=== PATIENT | male | born 1950 | race Caucasian/White ===

== ENCOUNTER 2019-08-19 09:29 | Inpatient (IN) | payer MEDICARE, OTHER ==
[2019-08-19] MEDS ORDERED: Ondansetron 4 MG/2 ML SDV IVPUSH ONE (10:28)
[2019-08-19] MEDS ORDERED: Sodium Chloride 0.9% 10 ML Syringe FLUSH PRN (10:28)
--- NOTE | 2019-08-19 10:29 | EDM.PDOC ---
<Fauzia Garcia L - Last Filed: 08/19/19 10:22> ED HPI GENERAL MEDICAL PROBLEM - General Chief Complaint: Abdominal Pain Stated Complaint: VOMITING BLACK Time Seen by Provider: 08/19/19 10:03 Source of Information: Reports: Patient History Limitations: Reports: No Limitations - History of Present Illness INITIAL COMMENTS - FREE TEXT/NARRATIVE: 68-year-old male presents with epigastric burning and black emesis starting this morning around 4 am. He notes that yesterday around 4 pm he started having abdominal bloating. The 3 episodes of emesis were as follows: 1st was a moderate amount starting at 4 am, 2nd was a small amount around 5:30 am, and 3rd was a significant amount around 7 am. He did notice some "clamato" colored areas within the emesis but states that he did have a chicken sandwich with clamato before the emesis started. He denies any recent alcohol use or changes to his diet. He states that he does not eat after 1 pm each day and has been doing this for over 15 years. He occasionally will have a small snack to take his eliquis with in the afternoon. He was started on eliquis due to a history of multiple pulmonary embolisms. The patient denies changes to his stool, changes to urination, chest pain, headaches , and shortness of breath. He has been feeling a bit more fatigued in the past day. Onset: Today Location: Reports: Abdomen Quality: Reports: Burning (epigastric region) Severity: Mild (right now 4/10 but states it had been about 9/10) Associated Symptoms: Reports: Weakness Abdominal Pain Score (Numeric/FACES): 4 - Related Data Allergies Allergy/AdvReac Type Severity Reaction Status Date / Time apixaban [From Eliquis] AdvReac Rash Verified 08/19/19 10:00 Home Meds: Home Meds Apixaban [Eliquis] 5 mg PO BID 08/19/19 [History] Diltiazem HCl [Cardizem LA] 360 mg PO DAILY 08/19/19 [History] Metoprolol Succinate 100 mg PO DAILY 08/19/19 [History] hydroCHLOROthiazide [Hydrochlorothiazide] 12.5 mg PO DAILY 08/19/19 [History] Past Medical History Cardiovascular History: Reports: High Cholesterol, Hypertension Respiratory History: Reports: PE, Other (See Below) Other Respiratory History: undiagnosed lung issue - chronic occupational asthma Genitourinary History: Reports: Prostate Disorder Dermatologic History: Reports: Psoriasis (around umbilicus) - Past Surgical History HEENT Surgical History: Reports: Cataract Surgery, Other (See Below) Other HEENT Surgeries/Procedures: eyes rebuilt Other Respiratory Surgeries/Procedures: blood clot removed from him lunch via access of groin GI Surgical History: Reports: Appendectomy, Hernia, Inguinal Musculoskeletal Surgical History: Reports: Shoulder Surgery, Other (See Below) Other Musculoskeletal Surgeries/Procedures:: finger surgery Social & Family History - Tobacco Use Smoking Status *Q: Never Smoker - Caffeine Use Caffeine Use: Reports: Coffee - Recreational Drug Use Recreational Drug Use: No ED ROS GENERAL - Review of Systems Review Of Systems: See Below Constitutional: Reports: Fatigue. Denies: Fever, Chills HEENT: Reports: No Symptoms Respiratory: Reports: No Symptoms Cardiovascular: Reports: No Symptoms GI/Abdominal: Reports: Abdominal Pain (epigastric burning), Distension, Nausea, Vomiting, Other (black emesis ). Denies: Constipation, Diarrhea, Difficulty Swallowing : Reports: No Symptoms Musculoskeletal: Reports: No Symptoms Skin: Reports: No Symptoms Neurological: Reports: No Symptoms Psychiatric: Reports: No Symptoms Hematologic/Lymphatic: Reports: Easy Bleeding (on eliquis ) ED EXAM, GI/ABD - Physical Exam Exam: See Below Exam Limited By: No Limitations General Appearance: Alert, WD/WN, No Apparent Distress Head: Atraumatic, Normocephalic Neck: Normal Inspection Respiratory/Chest: No Respiratory Distress, Lungs Clear, Normal Breath Sounds, No Accessory Muscle Use Cardiovascular: Normal Peripheral Pulses, No Murmur, Tachycardia GI/Abdominal Exam: Normal Bowel Sounds, Non-Tender, No Organomegaly, No Mass, Distended. No: Hernia Back Exam: Normal Inspection, Full Range of Motion Neurological: Alert, Oriented, Normal Cognition Psychiatric: Normal Affect, Normal Mood Skin Exam: Warm, Dry, Intact, Normal Color, Rash (periumbilical psoriasis ), Other (small hemangioma on right mid-abdomen ) Course - Vital Signs Last Recorded V/S: Last Vital Signs Temp 97.7 F 08/19/19 09:55 Pulse 110 H 08/19/19 09:55 Resp 18 08/19/19 09:55 BP 153/107 H 08/19/19 09:55 Pulse Ox 96 08/19/19 09:55 Orthostatic Blood Pressure [ 140/100 Standing] Orthostatic Blood Pressure [ 153/94 Sitting] Orthostatic Blood Pressure [ 137/98 Supine] - Orders/Labs/Meds Orders: Active Orders 24 hr Category Date Time Status Peripheral IV Care [RC] . DIRECTED Care 08/19/19 10:29 Active Sodium Chloride 0.9% [Normal Saline] 1,000 ml Med 08/19/19 10:30 Active IV ONETIME Sodium Chloride 0.9% [Saline Flush] Med 08/19/19 10:28 Active 10 ml FLUSH ASDIRECTED PRN Peripheral IV Insertion Adult [OM.PC] Stat Oth 08/19/19 10:27 Ordered Medication Orders Sodium Chloride (Normal Saline) 1,000 mls @ 999 mls/hr IV ONETIME TOMMY Last Admin: 08/19/19 11:02 Dose: 999 mls/hr Sodium Chloride (Saline Flush) 10 ml FLUSH ASDIRECTED PRN PRN Reason: Keep Vein Open Last Admin: 08/19/19 10:50 Dose: 10 ml Labs: Laboratory Tests 08/19/19 08/19/19 Range/Units 10:00 10:00 WBC 11.86 H (4.23-9.07) K/mm3 RBC 5.15 (4.63-6.08) M/mm3 Hgb 15.2 (13.7-17.5) gm/dl Hct 46.8 (40.1-51.0) % MCV 90.9 (79.0-92.2) fl MCH 29.5 (25.7-32.2) pg MCHC 32.5 (32.2-35.5) g/dl RDW Std Deviation 44.4 H (35.1-43.9) fL Plt Count 233 (163-337) K/mm3 MPV 10.0 (9.4-12.3) fl Neut % (Auto) 88.6 H (34.0-67.9) % Lymph % (Auto) 4.4 L (21.8-53.1) % [place] % (Auto) 6.6 (5.3-12.2) % Eos % (Auto) 0.1 L (0.8-7.0) Baso % (Auto) 0.1 (0.1-1.2) % Neut # (Auto) 10.52 H (1.78-5.38) K/mm3 Lymph # (Auto) 0.52 L (1.32-3.57) K/mm3 [place] # (Auto) 0.78 (0.30-0.82) K/mm3 Eos # (Auto) 0.01 L (0.04-0.54) K/mm3 Baso # (Auto) 0.01 (0.01-0.08) K/mm3 Manual Slide Review Abnormal smear Sodium 141 (136-145) mEq/L Potassium 3.3 L (3.5-5.1) mEq/L Chloride 98 (98-107) mEq/L Carbon Dioxide 32 (21-32) mEq/L Anion Gap 14.3 (5-15) BUN 22 H (7-18) mg/dL Creatinine 1.3 (0.7-1.3) mg/dL Est Cr Clr Drug Dosing 50.85 mL/min Estimated GFR (MDRD) 55 (>60) mL/min BUN/Creatinine Ratio 16.9 (14-18) Glucose 137 H (80-115) mg/dL Calcium 9.8 (8.5-10.1) mg/dL Total Bilirubin 0.4 (0.2-1.0) mg/dL AST 18 (15-37) U/L ALT 22 (16-63) U/L Alkaline Phosphatase 95 (46-116) U/L Total Protein 8.5 H (6.4-8.2) g/dl Albumin 4.0 (3.4-5.0) g/dl Globulin 4.5 gm/dL Albumin/Globulin Ratio 0.9 L (1-2) Meds: Medications Generic Name Dose Route Start Last Admin Trade Name Freq PRN Reason Stop Dose Admin Sodium Chloride 1,000 mls @ 999 mls/hr 08/19/19 10:30 08/19/19 11:02 Normal Saline IV 999 mls/hr ONETIME TOMMY Administration Sodium Chloride 10 ml 08/19/19 10:28 08/19/19 10:50 Saline Flush FLUSH 10 ml ASDIRECTED PRN Administration Keep Vein Open Discontinued Medications Generic Name Dose Route Start Last Admin Trade Name Freq PRN Reason Stop Dose Admin Famotidine 20 mg 08/19/19 10:35 08/19/19 10:52 Pepcid IVPUSH 01/30/20 10:36 20 mg ONETIME ONE Administration Ondansetron HCl 4 mg 08/19/19 10:28 08/19/19 10:50 Zofran IVPUSH 08/19/19 10:29 4 mg ONETIME ONE Administration Pantoprazole Sodium 40 mg 08/19/19 10:35 08/19/19 10:54 Protonix Iv IVPUSH 08/19/19 10:36 40 mg ONETIME ONE Administration Departure - Departure Disposition: Admitted As Inpatient 66 Clinical Impression: Upper GI hemorrhage - Discharge Information Sepsis Event Note - Evaluation Sepsis Screening Result: No Definite Risk - Focused Exam Vital Signs: Vital Signs Temp Pulse Resp BP Pulse Ox 08/19/19 09:55 97.7 F 110 H 18 153/107 H 96 Date Exam was Performed: 08/19/19 Time Exam was Performed: 10:22 - My Orders Last 24 Hours: My Active Orders 08/19/19 10:27 Peripheral IV Insertion Adult [OM.PC] Stat 08/19/19 10:28 Sodium Chloride 0.9% [Saline Flush] 10 ml FLUSH ASDIRECTED PRN 08/19/19 10:29 Peripheral IV Care [RC] . DIRECTED 08/19/19 10:30 Sodium Chloride 0.9% [Normal Saline] 1,000 ml IV ONETIME - Assessment/Plan Last 24 Hours: My Active Orders 08/19/19 10:27 Peripheral IV Insertion Adult [OM.PC] Stat 08/19/19 10:28 Sodium Chloride 0.9% [Saline Flush] 10 ml FLUSH ASDIRECTED PRN 08/19/19 10:29 Peripheral IV Care [RC] . DIRECTED 08/19/19 10:30 Sodium Chloride 0.9% [Normal Saline] 1,000 ml IV ONETIME <Tomy Guidry L - Last Filed: 08/19/19 13:31> ED ROS GENERAL - Review of Systems GI/Abdominal: Denies: Hematochezia, Melena ED EXAM, GI/ABD - Physical Exam Rectal (Males) Exam: Other (Trace brown stool, no blood, heme negative) Course - Re-Assessments/Exams Free Text/Narrative Re-Assessment/Exam: 08/19/19 13:23 Hemoglobin did come back good at around 15.4. Blood pressure is been stable but he has been tachycardic most if not all of the time here in the ED. He came in with a heart rate in the 110-112 range, slowly as tapered down to about 102- 104. Blood pressure has remained in the 130s to 140s systolic. There's been no vomiting while in the ED but she does continue to have upper abdominal pressure , fullness bloating and nausea type feeling. Did give pepcid IV, protonix 40 mg IV, did just order 2nd 40 mg dose of protonix IV. Departure - Departure Time of Disposition: 11:30 Condition: Fair Sepsis Event Note - Focused Exam Date Exam was Performed: 08/19/19 Time Exam was Performed: 13:22 ED Communication - Discussed Case With (1) Discussed Case With (1): Admitting Provider (Discussed with Dr Carver, decision to admit at about 11:30)
[2019-08-19] MEDS ORDERED: Sodium Chloride 0.9% 1,000 ML IV SCH (10:30)
[2019-08-19] MEDS ORDERED: Famotidine 20 MG/2 ML SDV IVPUSH ONE (10:35)
[2019-08-19] MEDS ORDERED: Pantoprazole 40 MG Vial IVPUSH ONE ×2 (10:35→13:25)
[2019-08-19] MEDS: Pantoprazole 80 MG in Sodium Chloride 0.9% 100 ML IV SCH ×2 (14:25→23:50)
[2019-08-19] MEDS ORDERED: Ondansetron 4 MG/2 ML SDV IV PRN (14:45)
--- NOTE | 2019-08-19 14:52 | PCM.CONS ---
H&P History of Present Illness - General Date of Service: 08/19/19 Admit Problem/Dx: Admission Diagnosis/Problem Admission Diagnosis/Problem Gastric hemorrhage Source of Information: Patient, Provider History Limitations: Reports: No Limitations - History of Present Illness Initial Comments - Free Text/Narative: The patient is a 68 y/o gentleman who presented with epigastric pain and coffee- ground emesis. He reports having burning pain and pressure in the epigastrium starting yesterday. This was preceded by 2 weeks of heartburn. He started vomiting this am, and noted black emesis and coffee-ground emesis. He reports occasional BRBPR and bright red blood on his stools in the toilet bowl. He reports problems with hemorrhoids in the past. He states the rectal bleeding is often associated with a painful or hard stool. He is in the process of scheduling an outpatient EGD and colonoscopy. He takes an anticoagulant for the past 8 months for a history of PE. Abdominal Pain Score (Numeric/FACES): 2 - Related Data Allergies/Adverse Reactions: Allergies Allergy/AdvReac Type Severity Reaction Status Date / Time No Known Allergies Allergy Verified 08/19/19 14:10 Home Medications: Home Meds Apixaban [Eliquis] 5 mg PO BID 08/19/19 [History] Diltiazem HCl [Cardizem LA] 360 mg PO DAILY 08/19/19 [History] Metoprolol Succinate 100 mg PO DAILY 08/19/19 [History] hydroCHLOROthiazide [Hydrochlorothiazide] 12.5 mg PO DAILY 08/19/19 [History] Past Medical History HEENT History: Reports: Impaired Vision Cardiovascular History: Reports: High Cholesterol, Hypertension Respiratory History: Reports: PE, Other (See Below) Other Respiratory History: undiagnosed lung issue - chronic occupational asthma Genitourinary History: Reports: Prostate Disorder Dermatologic History: Reports: Psoriasis - Past Surgical History HEENT Surgical History: Reports: Cataract Surgery, Other (See Below) Other HEENT Surgeries/Procedures: eyes rebuilt Other Respiratory Surgeries/Procedures: blood clot removed from him lunch via access of groin GI Surgical History: Reports: Appendectomy, Hernia, Inguinal Musculoskeletal Surgical History: Reports: Shoulder Surgery, Other (See Below) Other Musculoskeletal Surgeries/Procedures:: finger surgery Social & Family History - Family History Cardiac: Reports: CAD Oncologic: Reports: None - Tobacco Use Smoking Status *Q: Former Smoker Used Tobacco, but Quit: Yes Month/Year Tobacco Last Used: 1979 - Caffeine Use Caffeine Use: Reports: Coffee - Recreational Drug Use Recreational Drug Use: No H&P Review of Systems - Review of Systems: Review Of Systems: See Below General: Reports: No Symptoms HEENT: Reports: No Symptoms Pulmonary: Reports: Wheezing, Cough Cardiovascular: Reports: No Symptoms Gastrointestinal: Reports: Abdominal Pain, Hematemesis, Vomiting Genitourinary: Reports: No Symptoms Skin: Reports: Rash Neurological: Reports: Weakness Exam - Exam Exam: See Below - Vital Signs Vital Signs: Last Vital Signs Temp 36.5 C 08/19/19 09:55 Pulse 110 H 08/19/19 09:55 Resp 18 08/19/19 09:55 BP 153/107 H 08/19/19 09:55 Pulse Ox 96 08/19/19 09:55 Orthostatic Blood Pressure [ 140/100 Standing] Orthostatic Blood Pressure [ 153/94 Sitting] Orthostatic Blood Pressure [ 137/98 Supine] Weight: 86.273 kg - Exam Quality Assessment: Supplemental Oxygen General: Alert, Oriented HEENT: Conjunctiva Clear, EOMI Neck: Supple Lungs: Normal Respiratory Effort Cardiovascular: Regular Rhythm, Tachycardia GI/Abdominal Exam: Soft, Distended (mild), Tender (mild tenderness in the upper abdomen) Peripheral Pulses: 2+: Dorsalis Pedis (L), Dorsalis Pedis (R) Skin: Warm, Dry, Intact Neurological: Cranial Nerves Intact Neuro Extensive - Mental Status: Normal Mood/Affect - Patient Data Lab Results Last 24 hrs: Laboratory Results - last 24 hr 08/19/19 08/19/19 08/19/19 Range/Units 10:00 10:00 14:27 WBC 11.86 H (4.23-9.07) K/mm3 RBC 5.15 (4.63-6.08) M/mm3 Hgb 15.2 14.1 (13.7-17.5) gm/dl Hct 46.8 43.7 (40.1-51.0) % MCV 90.9 (79.0-92.2) fl MCH 29.5 (25.7-32.2) pg MCHC 32.5 (32.2-35.5) g/dl RDW Std Deviation 44.4 H (35.1-43.9) fL Plt Count 233 (163-337) K/mm3 MPV 10.0 (9.4-12.3) fl Neut % (Auto) 88.6 H (34.0-67.9) % Lymph % (Auto) 4.4 L (21.8-53.1) % [place] % (Auto) 6.6 (5.3-12.2) % Eos % (Auto) 0.1 L (0.8-7.0) Baso % (Auto) 0.1 (0.1-1.2) % Neut # (Auto) 10.52 H (1.78-5.38) K/mm3 Lymph # (Auto) 0.52 L (1.32-3.57) K/mm3 [place] # (Auto) 0.78 (0.30-0.82) K/mm3 Eos # (Auto) 0.01 L (0.04-0.54) K/mm3 Baso # (Auto) 0.01 (0.01-0.08) K/mm3 Manual Slide Review Abnormal smear Sodium 141 (136-145) mEq/L Potassium 3.3 L (3.5-5.1) mEq/L Chloride 98 (98-107) mEq/L Carbon Dioxide 32 (21-32) mEq/L Anion Gap 14.3 (5-15) BUN 22 H (7-18) mg/dL Creatinine 1.3 (0.7-1.3) mg/dL Est Cr Clr Drug Dosing 50.85 mL/min Estimated GFR (MDRD) 55 (>60) mL/min BUN/Creatinine Ratio 16.9 (14-18) Glucose 137 H (80-115) mg/dL Calcium 9.8 (8.5-10.1) mg/dL Total Bilirubin 0.4 (0.2-1.0) mg/dL AST 18 (15-37) U/L ALT 22 (16-63) U/L Alkaline Phosphatase 95 (46-116) U/L Total Protein 8.5 H (6.4-8.2) g/dl Albumin 4.0 (3.4-5.0) g/dl Globulin 4.5 gm/dL Albumin/Globulin Ratio 0.9 L (1-2) Result Diagrams: 08/19/19 14:27 08/19/19 10:00 Sepsis Event Note - Evaluation Sepsis Screening Result: No Definite Risk - Focused Exam Vital Signs: Vital Signs Temp Pulse Resp BP Pulse Ox 08/19/19 09:55 36.5 C 110 H 18 153/107 H 96 Date Exam was Performed: 08/19/19 Time Exam was Performed: 16:14 Consult PN Assessment/Plan (1) Upper GI hemorrhage SNOMED Code(s): 75127356 Code(s): K92.2 - GASTROINTESTINAL HEMORRHAGE, UNSPECIFIED Current Visit: Yes Problem List Initiated/Reviewed/Updated: Yes Plan: 68 y/o male with upper GI bleed. hemodynamically stable - IVF resuscitation and NPO - trend Hg. May start diet if stable for 8-12 hours - IV protonix gtt or pushes BID per primary - obtain H. Pylori testing - will plan for EGD as outpatient at time of colonoscopy, but will continue to evaluate need for inpatient EGD Mela Fuchs MD General surgery
--- NOTE | 2019-08-19 14:59 | PCM.HP.2 ---
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 Patient states that yesterday around 10:30 AM he had a chicken salad sandwich and shortly after that his stomach started bloating. By 2200 hrs. his entire abdomen started burning and at 0400 hrs. he had black emesis. He had another small emesis at 0500 hrs. and then another large black emesis at 0700 hrs. He has not had any more emesis since that time nor has he had any bowel movements. He does complain of some mild nausea and was given Zofran in the emergency room. Patient did not take any of his medications this morning which included metoprolol, Eliquis, diltiazem, and hydrochlorothiazide. Patient denies any lightheadedness or orthostasis. Patient stopped smoking 43 years ago and does not drink alcohol. He denies any chest pain, shortness of breath, orthopnea or PND. Patient's does state that he was diagnosed with chronic occupational asthma approximately 8 years ago. Did have his pulmonary embolism when he was discharged his O2 sats were around 94 to 95% on room air. In the emergency room his blood pressure was found to be 153/107 with a heart rate of 110. Negative orthostatic blood pressures. He was given half a liter bolus and started on 150 mL/h of normal saline. Initial hemoglobin was 15.2 and a repeat on the floor was 14.1. WBC of 11.86, platelet count 233. INR, PT , PTT was not performed. BUN was slightly elevated at 22 with a creatinine of 1.3. Potassium slightly low at 3.3. Abdominal Pain Score (Numeric/FACES): 2 - Related Data Allergies/Adverse Reactions: Allergies Allergy/AdvReac Type Severity Reaction Status Date / Time No Known Allergies Allergy Verified 08/19/19 14:10 Home Medications: Home Meds Apixaban [Eliquis] 5 mg PO BID 08/19/19 [History] Diltiazem HCl [Cardizem LA] 360 mg PO DAILY 08/19/19 [History] Metoprolol Succinate 100 mg PO DAILY 08/19/19 [History] hydroCHLOROthiazide [Hydrochlorothiazide] 12.5 mg PO DAILY 08/19/19 [History] Past Medical History HEENT History: Reports: Impaired Vision Cardiovascular History: Reports: High Cholesterol, Hypertension Respiratory History: Reports: PE, Other (See Below) Other Respiratory History: undiagnosed lung issue - chronic occupational asthma Genitourinary History: Reports: Prostate Disorder Dermatologic History: Reports: Psoriasis - Past Surgical History HEENT Surgical History: Reports: Cataract Surgery, Other (See Below) Other HEENT Surgeries/Procedures: eyes rebuilt Other Respiratory Surgeries/Procedures: blood clot removed from him lunch via access of groin GI Surgical History: Reports: Appendectomy, Hernia, Inguinal Musculoskeletal Surgical History: Reports: Shoulder Surgery, Other (See Below) Other Musculoskeletal Surgeries/Procedures:: finger surgery Social & Family History - Family History Family Medical History: Noncontributory - Tobacco Use Smoking Status *Q: Former Smoker Used Tobacco, but Quit: Yes Month/Year Tobacco Last Used: 1979 - Caffeine Use Caffeine Use: Reports: Coffee - Recreational Drug Use Recreational Drug Use: No H&P Review of Systems - Review of Systems: Review Of Systems: See Below Exam - Exam Exam: See Below - Vital Signs Vital Signs: Last Vital Signs Temp 97.7 F 08/19/19 09:55 Pulse 110 H 08/19/19 09:55 Resp 18 08/19/19 09:55 BP 153/107 H 08/19/19 09:55 Pulse Ox 94 L 08/19/19 14:45 Orthostatic Blood Pressure [ 140/100 Standing] Orthostatic Blood Pressure [ 153/94 Sitting] Orthostatic Blood Pressure [ 137/98 Supine] Weight: 190 lb 3.2 oz - Patient Data Lab Results Last 24 hrs: Laboratory Results - last 24 hr 08/19/19 08/19/19 08/19/19 Range/Units 10:00 10:00 14:27 WBC 11.86 H (4.23-9.07) K/mm3 RBC 5.15 (4.63-6.08) M/mm3 Hgb 15.2 14.1 (13.7-17.5) gm/dl Hct 46.8 43.7 (40.1-51.0) % MCV 90.9 (79.0-92.2) fl MCH 29.5 (25.7-32.2) pg MCHC 32.5 (32.2-35.5) g/dl RDW Std Deviation 44.4 H (35.1-43.9) fL Plt Count 233 (163-337) K/mm3 MPV 10.0 (9.4-12.3) fl Neut % (Auto) 88.6 H (34.0-67.9) % Lymph % (Auto) 4.4 L (21.8-53.1) % Daniels % (Auto) 6.6 (5.3-12.2) % Eos % (Auto) 0.1 L (0.8-7.0) Baso % (Auto) 0.1 (0.1-1.2) % Neut # (Auto) 10.52 H (1.78-5.38) K/mm3 Lymph # (Auto) 0.52 L (1.32-3.57) K/mm3 Daniels # (Auto) 0.78 (0.30-0.82) K/mm3 Eos # (Auto) 0.01 L (0.04-0.54) K/mm3 Baso # (Auto) 0.01 (0.01-0.08) K/mm3 Manual Slide Review Abnormal smear Sodium 141 (136-145) mEq/L Potassium 3.3 L (3.5-5.1) mEq/L Chloride 98 (98-107) mEq/L Carbon Dioxide 32 (21-32) mEq/L Anion Gap 14.3 (5-15) BUN 22 H (7-18) mg/dL Creatinine 1.3 (0.7-1.3) mg/dL Est Cr Clr Drug Dosing 50.85 mL/min Estimated GFR (MDRD) 55 (>60) mL/min BUN/Creatinine Ratio 16.9 (14-18) Glucose 137 H (80-115) mg/dL Calcium 9.8 (8.5-10.1) mg/dL Total Bilirubin 0.4 (0.2-1.0) mg/dL AST 18 (15-37) U/L ALT 22 (16-63) U/L Alkaline Phosphatase 95 (46-116) U/L Total Protein 8.5 H (6.4-8.2) g/dl Albumin 4.0 (3.4-5.0) g/dl Globulin 4.5 gm/dL Albumin/Globulin Ratio 0.9 L (1-2) Result Diagrams: 08/19/19 16:23 08/19/19 10:00 EKG INTERPRETATION EKG Date: 08/19/19 Rhythm: NSR Rate (Beats/Min): 91 [place]: LAD-Left [place] Deviation P-Wave: Present QRS: Other (IVCD) ST-T: Other (aVL T wave inversion.) QT: Prolonged (QTc 509) Comparison: NA - No Prior EKG Sepsis Event Note - Evaluation Sepsis Screening Result: No Definite Risk - Focused Exam Vital Signs: Vital Signs Temp Pulse Resp BP Pulse Ox Pulse Ox 08/19/19 14:45 94 L 08/19/19 09:55 97.7 F 110 H 18 153/107 H 96 Date Exam was Performed: 08/19/19 Time Exam was Performed: 17:20 Problem List Initiated/Reviewed/Updated: Yes Orders Last 24hrs: Active Orders 24 hr Category Date Time Status Patient Status [ADT] Routine ADT 08/19/19 13:10 Active Antiembolic Devices [RC] PER UNIT ROUTINE Care 08/19/19 14:49 Ordered Notify Provider Consults [RC] ASDIRECTED Care 08/19/19 14:49 Ordered Oxygen Therapy [RC] PRN Care 08/19/19 14:45 Ordered Peripheral IV Care [RC] Q2HR Care 08/19/19 10:29 Active Up With Assistance [RC] ASDIRECTED Care 08/19/19 14:45 Ordered VTE/DVT Education [RC] PER UNIT ROUTINE Care 08/19/19 14:45 Ordered Vital Signs [RC] ASDIRECTED Care 08/19/19 14:45 Ordered Consult to Physician [CONS] Routine Cons 08/19/19 14:45 Ordered Nothing per Oral Now Diet [DIET] Diet 08/19/19 Dinner Ordered COMPREHENSIVE METABOLIC PN,CMP [CHEM] AM Lab 08/20/19 05:11 Ordered H PYLORI STOOL ANTIGEN [MREF] Routine Lab 08/19/19 13:46 Ordered HEMOGLOBIN/HEMATOCRIT,HH [HEME] Q4H Lab 08/19/19 16:00 Ordered HEMOGLOBIN/HEMATOCRIT,HH [HEME] Q4H Lab 08/19/19 20:00 Ordered HEMOGLOBIN/HEMATOCRIT,HH [HEME] Q4H Lab 08/20/19 00:00 Ordered HEMOGLOBIN/HEMATOCRIT,HH [HEME] Q4H Lab 08/20/19 04:00 Ordered HEMOGLOBIN/HEMATOCRIT,HH [HEME] Q4H Lab 08/20/19 08:00 Ordered HEMOGLOBIN/HEMATOCRIT,HH [HEME] Q4H Lab 08/20/19 12:00 Ordered MAGNESIUM [CHEM] AM Lab 08/20/19 05:11 Ordered TYPE AND SCREEN [BBK] Routine Lab 08/19/19 14:50 Ordered Metoprolol Tartrate [Lopressor] Med 08/19/19 15:00 Ordered 5 mg IVPUSH Q6H Ondansetron [Zofran] Med 08/19/19 14:45 Ordered 4 mg IV Q4H PRN Pantoprazole [ProTONIX IV] 80 mg Med 08/19/19 14:00 Active Sodium Chloride 0.9% [Normal Saline] 100 ml IV Q10H Potassium Chloride [KCl 10 MEQ in Water 100 ML] 10 meq Med 08/19/19 15:00 Ordered Premix Bag 1 bag IV Q1H Sodium Chloride 0.9% [Normal Saline] 1,000 ml Med 08/19/19 10:30 Active IV ONETIME Sodium Chloride 0.9% [Saline Flush] Med 08/19/19 10:28 Active 10 ml FLUSH ASDIRECTED PRN Peripheral IV Insertion Adult [OM.PC] Stat Oth 08/19/19 10:27 Ordered Sequential Compression Device [OM.PC] Per Unit Routine Oth 08/19/19 14:47 Ordered Resuscitation Status Routine Resus Stat 08/19/19 14:45 Ordered Medication Orders Sodium Chloride (Normal Saline) 1,000 mls @ 999 mls/hr IV ONETIME TOMMY Last Admin: 08/19/19 11:02 Dose: 999 mls/hr Pantoprazole Sodium 80 mg/ (Sodium Chloride) 100 mls @ 10 mls/hr IV Q10H TOMMY Last Admin: 08/19/19 14:25 Dose: 10 mls/hr Potassium Chloride 10 meq/ (Premix) 100 mls @ 100 mls/hr IV Q1H [facility] Stop: 08/19/19 18:59 Metoprolol Tartrate (Lopressor) 5 mg IVPUSH Q6H TOMMY Ondansetron HCl (Zofran) 4 mg IV Q4H PRN PRN Reason: Nausea/Vomiting Sodium Chloride (Saline Flush) 10 ml FLUSH ASDIRECTED PRN PRN Reason: Keep Vein Open Last Admin: 08/19/19 10:50 Dose: 10 ml Assessment/Plan Comment:: Assessment * Upper GI bleed * 3 episodes of black emesis this morning * On Eliquis secondary to unprovoked DVT/PE in November 2018 * Initial hemoglobin 15.2 and repeat 14.1 * Given pantoprazole 80 mg IV bolus in the emergency room and Pepcid 20 mg IV * Does not take NSAIDs or other antiplatelet medication * Hypertension * Patient is on metoprolol, diltiazem, and hydrochlorothiazide. * Did not take medications this morning. * Sinus tachycardia * Likely secondary to missing 2 rate control medications this morning * Less likely due to anemia since hemoglobin is still stable. * Hypoxemia requiring 2 L O2 nasal cannula * History of DVT and PE in November 2018 * History of chronic occupational asthma diagnosed approximately 8 years ago * Lung sounds are clear. Plan * Admit to ICU * Consult surgery * Stop Eliquis * N.p.o. * Type and screen, PT PTT * Normal saline at 125 mL/h * Lopressor 5 mg every 6 hours IV * H&H every 4 hours * Protonix drip * FiO2 to keep SPO2 greater than 90% * VTE prophylaxis with SCDs * Restart home blood pressure medications when taking p.o. * CODE STATUS: Full code * Length of stay anticipated 3 days - Mortality Measure Prognosis:: Poor
[2019-08-19] MEDS: Metoprolol Tartrate 5 MG/5 ML SDV IVPUSH SCH ×2 (15:57→20:55)
[2019-08-19] MEDS: Potassium Chloride 10 MEQ in Premix Bag 1 BAG IV SCH ×4 (15:58→19:21)
[2019-08-19] MEDS: Sodium Chloride 0.9% 1,000 ML IV SCH ×2 (16:11→23:54)
[2019-08-20] MEDS: Metoprolol Tartrate 5 MG/5 ML SDV IVPUSH SCH (03:21)
--- NOTE | 2019-08-20 06:43 | PCM.CONSN ---
- General Info Date of Service: 08/20/19 Functional Status: Reports: Pain Controlled, Urinating, Other (tolerating water. Pt had BM overnight that was normal. No nausea or vomiting) - Patient Data Vitals - Most Recent: Last Vital Signs Temp 36.4 C 08/20/19 04:00 Pulse 82 08/20/19 03:21 Resp 16 08/20/19 04:00 BP 126/87 08/20/19 04:00 Pulse Ox 95 08/20/19 06:00 Orthostatic Blood Pressure [ 140/100 Standing] Orthostatic Blood Pressure [ 153/94 Sitting] Orthostatic Blood Pressure [ 137/98 Supine] Weight - Most Recent: 86.183 kg I&O - Last 24 Hours: Intake & Output 08/19/19 08/19/19 08/20/19 14:59 22:59 06:59 Intake Total 831 1553 Balance 831 1553 Lab Results Last 24 Hours: Laboratory Results - last 24 hr 08/19/19 08/19/19 08/19/19 Range/Units 10:00 10:00 14:27 WBC 11.86 H (4.23-9.07) K/mm3 RBC 5.15 (4.63-6.08) M/mm3 Hgb 15.2 14.1 (13.7-17.5) gm/dl Hct 46.8 43.7 (40.1-51.0) % MCV 90.9 (79.0-92.2) fl MCH 29.5 (25.7-32.2) pg MCHC 32.5 (32.2-35.5) g/dl RDW Std Deviation 44.4 H (35.1-43.9) fL Plt Count 233 (163-337) K/mm3 MPV 10.0 (9.4-12.3) fl Neut % (Auto) 88.6 H (34.0-67.9) % Lymph % (Auto) 4.4 L (21.8-53.1) % [place] % (Auto) 6.6 (5.3-12.2) % Eos % (Auto) 0.1 L (0.8-7.0) Baso % (Auto) 0.1 (0.1-1.2) % Neut # (Auto) 10.52 H (1.78-5.38) K/mm3 Lymph # (Auto) 0.52 L (1.32-3.57) K/mm3 [place] # (Auto) 0.78 (0.30-0.82) K/mm3 Eos # (Auto) 0.01 L (0.04-0.54) K/mm3 Baso # (Auto) 0.01 (0.01-0.08) K/mm3 Manual Slide Review Abnormal smear PT (9.7-12.0) SECONDS INR APTT (22-31) SECONDS Sodium 141 (136-145) mEq/L Potassium 3.3 L (3.5-5.1) mEq/L Chloride 98 (98-107) mEq/L Carbon Dioxide 32 (21-32) mEq/L Anion Gap 14.3 (5-15) BUN 22 H (7-18) mg/dL Creatinine 1.3 (0.7-1.3) mg/dL Est Cr Clr Drug Dosing 50.85 mL/min Estimated GFR (MDRD) 55 (>60) mL/min BUN/Creatinine Ratio 16.9 (14-18) Glucose 137 H (80-115) mg/dL Calcium 9.8 (8.5-10.1) mg/dL Magnesium (1.8-2.4) mg/dl Total Bilirubin 0.4 (0.2-1.0) mg/dL AST 18 (15-37) U/L ALT 22 (16-63) U/L Alkaline Phosphatase 95 (46-116) U/L Total Protein 8.5 H (6.4-8.2) g/dl Albumin 4.0 (3.4-5.0) g/dl Globulin 4.5 gm/dL Albumin/Globulin Ratio 0.9 L (1-2) Blood Type Gel Antibody Screen 08/19/19 08/19/19 08/19/19 Range/Units 14:27 16:23 20:11 WBC (4.23-9.07) K/mm3 RBC (4.63-6.08) M/mm3 Hgb 13.3 L 12.9 L (13.7-17.5) gm/dl Hct 41.3 40.5 (40.1-51.0) % MCV (79.0-92.2) fl MCH (25.7-32.2) pg MCHC (32.2-35.5) g/dl RDW Std Deviation (35.1-43.9) fL Plt Count (163-337) K/mm3 MPV (9.4-12.3) fl Neut % (Auto) (34.0-67.9) % Lymph % (Auto) (21.8-53.1) % [place] % (Auto) (5.3-12.2) % Eos % (Auto) (0.8-7.0) Baso % (Auto) (0.1-1.2) % Neut # (Auto) (1.78-5.38) K/mm3 Lymph # (Auto) (1.32-3.57) K/mm3 [place] # (Auto) (0.30-0.82) K/mm3 Eos # (Auto) (0.04-0.54) K/mm3 Baso # (Auto) (0.01-0.08) K/mm3 Manual Slide Review PT (9.7-12.0) SECONDS INR APTT (22-31) SECONDS Sodium (136-145) mEq/L Potassium (3.5-5.1) mEq/L Chloride (98-107) mEq/L Carbon Dioxide (21-32) mEq/L Anion Gap (5-15) BUN (7-18) mg/dL Creatinine (0.7-1.3) mg/dL Est Cr Clr Drug Dosing mL/min Estimated GFR (MDRD) (>60) mL/min BUN/Creatinine Ratio (14-18) Glucose (80-115) mg/dL Calcium (8.5-10.1) mg/dL Magnesium (1.8-2.4) mg/dl Total Bilirubin (0.2-1.0) mg/dL AST (15-37) U/L ALT (16-63) U/L Alkaline Phosphatase (46-116) U/L Total Protein (6.4-8.2) g/dl Albumin (3.4-5.0) g/dl Globulin gm/dL Albumin/Globulin Ratio (1-2) Blood Type B POSITIVE Gel Antibody Screen Negative 08/19/19 08/19/19 08/20/19 Range/Units 20:11 20:11 00:13 WBC (4.23-9.07) K/mm3 RBC (4.63-6.08) M/mm3 Hgb 12.2 L (13.7-17.5) gm/dl Hct 38.7 L (40.1-51.0) % MCV (79.0-92.2) fl MCH (25.7-32.2) pg MCHC (32.2-35.5) g/dl RDW Std Deviation (35.1-43.9) fL Plt Count (163-337) K/mm3 MPV (9.4-12.3) fl Neut % (Auto) (34.0-67.9) % Lymph % (Auto) (21.8-53.1) % [place] % (Auto) (5.3-12.2) % Eos % (Auto) (0.8-7.0) Baso % (Auto) (0.1-1.2) % Neut # (Auto) (1.78-5.38) K/mm3 Lymph # (Auto) (1.32-3.57) K/mm3 [place] # (Auto) (0.30-0.82) K/mm3 Eos # (Auto) (0.04-0.54) K/mm3 Baso # (Auto) (0.01-0.08) K/mm3 Manual Slide Review PT 10.9 (9.7-12.0) SECONDS INR 1.00 APTT 28 (22-31) SECONDS Sodium (136-145) mEq/L Potassium (3.5-5.1) mEq/L Chloride (98-107) mEq/L Carbon Dioxide (21-32) mEq/L Anion Gap (5-15) BUN (7-18) mg/dL Creatinine (0.7-1.3) mg/dL Est Cr Clr Drug Dosing mL/min Estimated GFR (MDRD) (>60) mL/min BUN/Creatinine Ratio (14-18) Glucose (80-115) mg/dL Calcium (8.5-10.1) mg/dL Magnesium (1.8-2.4) mg/dl Total Bilirubin (0.2-1.0) mg/dL AST (15-37) U/L ALT (16-63) U/L Alkaline Phosphatase (46-116) U/L Total Protein (6.4-8.2) g/dl Albumin (3.4-5.0) g/dl Globulin gm/dL Albumin/Globulin Ratio (1-2) Blood Type Gel Antibody Screen 08/20/19 08/20/19 Range/Units 04:12 04:12 WBC (4.23-9.07) K/mm3 RBC (4.63-6.08) M/mm3 Hgb 11.9 L (13.7-17.5) gm/dl Hct 38.0 L (40.1-51.0) % MCV (79.0-92.2) fl MCH (25.7-32.2) pg MCHC (32.2-35.5) g/dl RDW Std Deviation (35.1-43.9) fL Plt Count (163-337) K/mm3 MPV (9.4-12.3) fl Neut % (Auto) (34.0-67.9) % Lymph % (Auto) (21.8-53.1) % [place] % (Auto) (5.3-12.2) % Eos % (Auto) (0.8-7.0) Baso % (Auto) (0.1-1.2) % Neut # (Auto) (1.78-5.38) K/mm3 Lymph # (Auto) (1.32-3.57) K/mm3 [place] # (Auto) (0.30-0.82) K/mm3 Eos # (Auto) (0.04-0.54) K/mm3 Baso # (Auto) (0.01-0.08) K/mm3 Manual Slide Review PT (9.7-12.0) SECONDS INR APTT (22-31) SECONDS Sodium 143 (136-145) mEq/L Potassium 3.6 (3.5-5.1) mEq/L Chloride 108 H (98-107) mEq/L Carbon Dioxide 27 (21-32) mEq/L Anion Gap 11.6 (5-15) BUN 18 (7-18) mg/dL Creatinine 1.1 (0.7-1.3) mg/dL Est Cr Clr Drug Dosing 60.09 mL/min Estimated GFR (MDRD) > 60 (>60) mL/min BUN/Creatinine Ratio 16.4 (14-18) Glucose 91 (80-115) mg/dL Calcium 7.8 L D (8.5-10.1) mg/dL Magnesium 1.9 (1.8-2.4) mg/dl Total Bilirubin 0.4 (0.2-1.0) mg/dL AST 14 L (15-37) U/L ALT 12 L (16-63) U/L Alkaline Phosphatase 65 (46-116) U/L Total Protein 6.1 L (6.4-8.2) g/dl Albumin 2.8 L (3.4-5.0) g/dl Globulin 3.3 gm/dL Albumin/Globulin Ratio 0.9 L (1-2) Blood Type Gel Antibody Screen Med Orders - Current: Current Medications Sodium Chloride (Normal Saline) 1,000 mls @ 999 mls/hr IV ONETIME [facility] Last Admin: 08/19/19 11:02 Dose: 999 mls/hr Pantoprazole Sodium 80 mg/ (Sodium Chloride) 100 mls @ 10 mls/hr IV Q10H [facility] Last Admin: 08/19/19 23:50 Dose: 10 mls/hr Sodium Chloride (Normal Saline) 1,000 mls @ 125 mls/hr IV ASDIRECTED [facility] Last Admin: 08/19/19 23:54 Dose: 125 mls/hr Metoprolol Tartrate (Lopressor) 5 mg IVPUSH Q6H [facility] Last Admin: 08/20/19 03:21 Dose: 5 mg Ondansetron HCl (Zofran) 4 mg IV Q4H PRN PRN Reason: Nausea/Vomiting Sodium Chloride (Saline Flush) 10 ml FLUSH ASDIRECTED PRN PRN Reason: Keep Vein Open Last Admin: 08/19/19 10:50 Dose: 10 ml Discontinued Medications Famotidine (Pepcid) 20 mg IVPUSH ONETIME ONE Stop: 08/19/19 10:36 Last Admin: 08/19/19 10:52 Dose: 20 mg Potassium Chloride 10 meq/ (Premix) 100 mls @ 100 mls/hr IV Q1H [facility] Stop: 08/19/19 18:59 Last Admin: 08/19/19 19:21 Dose: 100 mls/hr Ondansetron HCl (Zofran) 4 mg IVPUSH ONETIME ONE Stop: 08/19/19 10:29 Last Admin: 08/19/19 10:50 Dose: 4 mg Pantoprazole Sodium (Protonix Iv) 40 mg IVPUSH ONETIME ONE Stop: 08/19/19 10:36 Last Admin: 08/19/19 10:54 Dose: 40 mg Pantoprazole Sodium (Protonix Iv) 40 mg IVPUSH ONETIME ONE Stop: 08/19/19 13:26 Last Admin: 08/19/19 13:59 Dose: 40 mg - Exam Quality Assessment: Supplemental Oxygen General: Alert, Oriented HEENT: EOMI Lungs: Normal Respiratory Effort GI/Abdominal Exam: Soft, Non-Tender, No Distention Sepsis Event Note - Evaluation Sepsis Screening Result: No Definite Risk - Focused Exam Vital Signs: Vital Signs Temp Pulse Resp BP BP Pulse Ox Pulse Ox 08/20/19 06:00 95 08/20/19 05:00 96 08/20/19 04:01 94 L 08/20/19 04:00 36.4 C 16 126/87 94 L 08/20/19 03:21 82 115/77 08/20/19 02:00 95 08/20/19 01:00 94 L 08/20/19 00:01 96 08/20/19 00:00 36.4 C 16 122/76 96 08/19/19 23:00 96 08/19/19 22:00 95 08/19/19 21:16 95 08/19/19 20:55 94 143/100 H 08/19/19 20:31 95 08/19/19 20:30 95 08/19/19 20:00 36.9 C 16 139/85 93 L Date Exam was Performed: 08/20/19 Time Exam was Performed: 06:38 Consult PN Assessment/Plan (1) Upper GI hemorrhage SNOMED Code(s): 42570639 Code(s): K92.2 - GASTROINTESTINAL HEMORRHAGE, UNSPECIFIED Current Visit: Yes Problem List Initiated/Reviewed/Updated: Yes Plan: 68 y/o male with upper GI bleed. hemodynamically stable. - recommend decreasing IVF rate. - Recommend trend Hg q6h. Decrease is likely dilutional. May start diet if stable for 8-12 hours - IV protonix BID per primary - obtain H. Pylori testing - will plan for EGD as outpatient at time of colonoscopy, but will continue to evaluate need for inpatient EGD Mela Fuchs MD General surgery
[2019-08-20] MEDS: Diltiazem 180 MG Cap.CD PO SCH (08:18)
[2019-08-20] MEDS: Metoprolol Succinate 50 MG Tab.ER PO SCH (08:19)
[2019-08-20] MEDS: Hydrochlorothiazide 12.5 MG Cap PO SCH (08:24)
[2019-08-20] MEDS ORDERED: Carboxymethylcellulose Sodium 1% Ophth Gel 15 ML Bottle EYEBOTH PRN (08:37)
[2019-08-20] MEDS ORDERED: Sodium Chloride 0.9% 1,000 ML IV SCH (08:45)
[2019-08-20] MEDS: Pantoprazole 80 MG in Sodium Chloride 0.9% 100 ML IV SCH ×2 (09:54→20:39)
--- NOTE | 2019-08-20 17:37 | PCM.PN ---
- General Info Date of Service: 08/20/19 Admission Dx/Problem (Free Text): Admission Diagnosis/Problem Admission Diagnosis/Problem Gastric hemorrhage Functional Status: Reports: Pain Controlled - Review of Systems General: Reports: No Symptoms HEENT: Reports: No Symptoms Pulmonary: Reports: No Symptoms Cardiovascular: Reports: No Symptoms Gastrointestinal: Reports: No Symptoms Musculoskeletal: Reports: No Symptoms Skin: Reports: No Symptoms - Patient Data Vitals - Most Recent: Last Vital Signs Temp 98 F 08/20/19 11:26 Pulse 90 08/20/19 08:19 Resp 16 08/20/19 11:26 BP 141/89 H 08/20/19 11:26 Pulse Ox 92 L 08/20/19 11:26 Orthostatic Blood Pressure [ 140/100 Standing] Orthostatic Blood Pressure [ 153/94 Sitting] Orthostatic Blood Pressure [ 137/98 Supine] Weight - Most Recent: 190 lb I&O - Last 24 Hours: Intake & Output 08/20/19 08/20/19 08/20/19 06:59 14:59 22:59 Intake Total 1553 440 Balance 1553 440 Lab Results Last 24 Hours: Laboratory Results - last 24 hr 08/19/19 08/19/19 08/19/19 Range/Units 20:11 20:11 20:11 Hgb 12.9 L (13.7-17.5) gm/dl Hct 40.5 (40.1-51.0) % PT 10.9 (9.7-12.0) SECONDS INR 1.00 APTT 28 (22-31) SECONDS Sodium (136-145) mEq/L Potassium (3.5-5.1) mEq/L Chloride (98-107) mEq/L Carbon Dioxide (21-32) mEq/L Anion Gap (5-15) BUN (7-18) mg/dL Creatinine (0.7-1.3) mg/dL Est Cr Clr Drug Dosing mL/min Estimated GFR (MDRD) (>60) mL/min BUN/Creatinine Ratio (14-18) Glucose (80-115) mg/dL Calcium (8.5-10.1) mg/dL Magnesium (1.8-2.4) mg/dl Total Bilirubin (0.2-1.0) mg/dL AST (15-37) U/L ALT (16-63) U/L Alkaline Phosphatase (46-116) U/L Total Protein (6.4-8.2) g/dl Albumin (3.4-5.0) g/dl Globulin gm/dL Albumin/Globulin Ratio (1-2) 08/20/19 08/20/19 08/20/19 Range/Units 00:13 04:12 04:12 Hgb 12.2 L 11.9 L (13.7-17.5) gm/dl Hct 38.7 L 38.0 L (40.1-51.0) % PT (9.7-12.0) SECONDS INR APTT (22-31) SECONDS Sodium 143 (136-145) mEq/L Potassium 3.6 (3.5-5.1) mEq/L Chloride 108 H (98-107) mEq/L Carbon Dioxide 27 (21-32) mEq/L Anion Gap 11.6 (5-15) BUN 18 (7-18) mg/dL Creatinine 1.1 (0.7-1.3) mg/dL Est Cr Clr Drug Dosing 60.09 mL/min Estimated GFR (MDRD) > 60 (>60) mL/min BUN/Creatinine Ratio 16.4 (14-18) Glucose 91 (80-115) mg/dL Calcium 7.8 L D (8.5-10.1) mg/dL Magnesium 1.9 (1.8-2.4) mg/dl Total Bilirubin 0.4 (0.2-1.0) mg/dL AST 14 L (15-37) U/L ALT 12 L (16-63) U/L Alkaline Phosphatase 65 (46-116) U/L Total Protein 6.1 L (6.4-8.2) g/dl Albumin 2.8 L (3.4-5.0) g/dl Globulin 3.3 gm/dL Albumin/Globulin Ratio 0.9 L (1-2) 08/20/19 08/20/19 Range/Units 08:37 14:13 Hgb 13.2 L 12.5 L (13.7-17.5) gm/dl Hct 42.2 39.6 L (40.1-51.0) % PT (9.7-12.0) SECONDS INR APTT (22-31) SECONDS Sodium (136-145) mEq/L Potassium (3.5-5.1) mEq/L Chloride (98-107) mEq/L Carbon Dioxide (21-32) mEq/L Anion Gap (5-15) BUN (7-18) mg/dL Creatinine (0.7-1.3) mg/dL Est Cr Clr Drug Dosing mL/min Estimated GFR (MDRD) (>60) mL/min BUN/Creatinine Ratio (14-18) Glucose (80-115) mg/dL Calcium (8.5-10.1) mg/dL Magnesium (1.8-2.4) mg/dl Total Bilirubin (0.2-1.0) mg/dL AST (15-37) U/L ALT (16-63) U/L Alkaline Phosphatase (46-116) U/L Total Protein (6.4-8.2) g/dl Albumin (3.4-5.0) g/dl Globulin gm/dL Albumin/Globulin Ratio (1-2) Med Orders - Current: Current Medications Artificial Tears (Refresh Liquigel 1%) 0 ml EYEBOTH TID PRN PRN Reason: Dry Eyes Last Admin: 08/20/19 09:28 Dose: 1 drop Diltiazem HCl (Cardizem Cd) 360 mg PO DAILY [facility] Last Admin: 08/20/19 08:18 Dose: 360 mg Hydrochlorothiazide (Hydrochlorothiazide) 12.5 mg PO DAILY [facility] Last Admin: 08/20/19 08:24 Dose: 12.5 mg Pantoprazole Sodium 80 mg/ (Sodium Chloride) 100 mls @ 10 mls/hr IV Q10H [facility] Last Admin: 08/20/19 09:54 Dose: 10 mls/hr Metoprolol Succinate (Toprol Xl) 100 mg PO DAILY [facility] Last Admin: 08/20/19 08:19 Dose: 100 mg Ondansetron HCl (Zofran) 4 mg IV Q4H PRN PRN Reason: Nausea/Vomiting Sodium Chloride (Saline Flush) 10 ml FLUSH ASDIRECTED PRN PRN Reason: Keep Vein Open Last Admin: 08/19/19 10:50 Dose: 10 ml Discontinued Medications Famotidine (Pepcid) 20 mg IVPUSH ONETIME ONE Stop: 08/19/19 10:36 Last Admin: 08/19/19 10:52 Dose: 20 mg Sodium Chloride (Normal Saline) 1,000 mls @ 999 mls/hr IV ONETIME [facility] Last Admin: 08/19/19 11:02 Dose: 999 mls/hr Potassium Chloride 10 meq/ (Premix) 100 mls @ 100 mls/hr IV Q1H [facility] Stop: 08/19/19 18:59 Last Admin: 08/19/19 19:21 Dose: 100 mls/hr Sodium Chloride (Normal Saline) 1,000 mls @ 125 mls/hr IV ASDIRECTED [facility] Last Admin: 08/19/19 23:54 Dose: 125 mls/hr Sodium Chloride (Normal Saline) 1,000 mls @ 75 mls/hr IV ASDIRECTED [facility] Last Admin: 08/20/19 08:29 Dose: 75 mls/hr Metoprolol Tartrate (Lopressor) 5 mg IVPUSH Q6H [facility] Last Admin: 08/20/19 03:21 Dose: 5 mg Ondansetron HCl (Zofran) 4 mg IVPUSH ONETIME ONE Stop: 08/19/19 10:29 Last Admin: 08/19/19 10:50 Dose: 4 mg Pantoprazole Sodium (Protonix Iv) 40 mg IVPUSH ONETIME ONE Stop: 08/19/19 10:36 Last Admin: 08/19/19 10:54 Dose: 40 mg Pantoprazole Sodium (Protonix Iv) 40 mg IVPUSH ONETIME ONE Stop: 08/19/19 13:26 Last Admin: 08/19/19 13:59 Dose: 40 mg - Exam General: Alert, Oriented HEENT: Pupils Equal, Mucous Membr. Moist/[place] Neck: Supple Lungs: Clear to Auscultation, Normal Respiratory Effort Cardiovascular: Regular Rate, Regular Rhythm GI/Abdominal Exam: Normal Bowel Sounds, Soft, Non-Tender, No Organomegaly, No Distention, No Abnormal Bruit, No Mass Extremities: Normal Inspection, Non-Tender, No Pedal Edema Skin: Warm, Dry, Intact Psy/Mental Status: Alert, Normal Affect, Normal Mood Sepsis Event Note - Evaluation Sepsis Screening Result: No Definite Risk - Focused Exam Vital Signs: Vital Signs Temp Pulse Resp BP BP Pulse Ox Pulse Ox 08/20/19 11:26 98 F 16 141/89 H 92 L 08/20/19 08:19 90 141/95 H 08/20/19 08:00 97.6 F 16 141/95 H 94 L 08/20/19 06:48 96 08/20/19 06:39 97 08/20/19 06:00 95 Date Exam was Performed: 08/20/19 Time Exam was Performed: 17:38 - Problem List Review Problem List Initiated/Reviewed/Updated: Yes - My Orders Last 24 Hours: My Active Orders 08/19/19 16:41 EKG Documentation Completion [RC] ASDIRECTED EKG 12 Lead [EK] Stat 08/20/19 08:37 Carboxymethylcellulose Sodium [Refresh Liquigel 1%] 0 ml EYEBOTH TID PRN 08/20/19 09:00 Diltiazem [Cardizem CD] 360 mg PO DAILY Metoprolol Succinate [Toprol XL] 100 mg PO DAILY hydroCHLOROthiazide 12.5 mg PO DAILY 08/20/19 14:28 Patient Status [ADT] Routine 08/20/19 20:00 HEMOGLOBIN/HEMATOCRIT,HH [HEME] Timed 08/20/19 Dinner Regular Diet [DIET] - Plan Plan:: Assessment * Upper GI bleed * 3 episodes of black emesis this morning * 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 * Did not take medications this morning. * Sinus tachycardia * Likely secondary to missing 2 rate control medications this morning * Less likely due to anemia since hemoglobin is still stable. * Hypoxemia requiring 2 L O2 nasal cannula * History of DVT and PE in November 2018 * History of chronic occupational asthma diagnosed approximately 8 years ago * Lung sounds are clear. Plan * Admit to ICU * Surgery following * Stop Eliquis * Advance diet. * Normal saline at 125 mL/h * Restart oral home meds. * H&H every 6 hours * Continue Protonix drip * FiO2 to keep SPO2 greater than 90% * VTE prophylaxis with SCDs * CODE STATUS: Full code * Length of stay anticipated 3 days
[2019-08-21] MEDS: Pantoprazole 80 MG in Sodium Chloride 0.9% 100 ML IV SCH (06:54)
[2019-08-21] MEDS: Metoprolol Succinate 50 MG Tab.ER PO SCH (09:11)
[2019-08-21] MEDS: Diltiazem 180 MG Cap.CD PO SCH (09:13)
[2019-08-21] MEDS: Hydrochlorothiazide 12.5 MG Cap PO SCH (09:14)
--- NOTE | 2019-08-21 10:29 | PCM.DCSUM1 ---
Discharge Summary - Hospital Course HPI Initial Comments: 68-year-old male taking Eliquis for history of unprovoked DVT with PE in November 2018 presented to the emergency room after 3 episodes of black emesis. Patient states that yesterday around 10:30 AM he had a chicken salad sandwich and shortly after that his stomach started bloating. By 2200 hrs. his entire abdomen started burning and at 0400 hrs. he had black emesis. He had another small emesis at 0500 hrs. and then another large black emesis at 0700 hrs. He has not had any more emesis since that time nor has he had any bowel movements. He does complain of some mild nausea and was given Zofran in the emergency room. Patient did not take any of his medications this morning which included metoprolol, Eliquis, diltiazem, and hydrochlorothiazide. Patient denies any lightheadedness or orthostasis. Patient stopped smoking 43 years ago and does not drink alcohol. He denies any chest pain, shortness of breath, orthopnea or PND. Patient's does state that he was diagnosed with chronic occupational asthma approximately 8 years ago. Did have his pulmonary embolism when he was discharged his O2 sats were around 94 to 95% on room air. In the emergency room his blood pressure was found to be 153/107 with a heart rate of 110. Negative orthostatic blood pressures. He was given half a liter bolus and started on 150 mL/h of normal saline. Initial hemoglobin was 15.2 and a repeat on the floor was 14.1. WBC of 11.86, platelet count 233. INR, PT , PTT was not performed. BUN was slightly elevated at 22 with a creatinine of 1.3. Potassium slightly low at 3.3. Diagnosis: Stroke: No - Discharge Data Discharge Date: 08/21/19 Discharge Disposition: Home, Self-Care 01 Condition: Good - Referral to Home Health Primary Care Physician: Jarad Perez Jr, MD - Patient Summary/Data Consults: Consultations 08/19/19 14:45 Consult to Physician [CONS] Routine Hospital Course: Patient was admitted into the ICU on a Protonix drip for upper GI bleeding. Serial hemoglobin was monitored and his hemoglobin dropped 2-3 points but stabilized. Diet was advanced without difficulty. Surgery was consulted. Patient was discharged on Protonix 40 mg twice daily with follow-up anticipated with surgery for outpatient endoscopy and his primary care provider. Patient was told to stop Eliquis and anticoagulation will need to be discussed with primary care provider. - Patient Instructions Diet: Heart Healthy Diet Driving: May Drive Today Showering/Bathing: May Shower Other/Special Instructions: Follow up with PCP early next week for appointment and blood count. Start pantoprazole 40 mg twice a day. Follow up with Dr. Rees in 4-5 weeks to discuss endoscopy. If you have black emesis, lightheadedness, dizziness return to hospital. - Discharge Plan *PRESCRIPTION DRUG MONITORING PROGRAM REVIEWED*: No *COPY OF PRESCRIPTION DRUG MONITORING REPORT IN PATIENT AMANDA: No Prescriptions/Med Rec: Pantoprazole Sodium [Protonix] 40 mg PO BID #60 tablet. Home Medications: Home Meds Diltiazem HCl [Cardizem LA] 360 mg PO DAILY 08/19/19 [History] Metoprolol Succinate 100 mg PO DAILY 08/19/19 [History] hydroCHLOROthiazide [Hydrochlorothiazide] 12.5 mg PO DAILY 08/19/19 [History] Carboxymethylcellulose Sodium [Refresh Tears] 1 drop EYEBOTH TID PRN 08/20/19 [ History] Pantoprazole Sodium [Protonix] 40 mg PO BID #60 tablet. 08/21/19 [Rx] Patient Handouts: Gastrointestinal Bleeding Forms: ED Department Discharge Referrals: Mela Fuchs MD [Physician] - (per patient and this appt. is already in the works they are waiting call back from nurse at [facility] with appt. date and time for scope. Encouraged patient that if he does not hear from them in a couple of days to call them back.) Jarad Perez Jr, MD [Primary Care Provider] - (Please schedule a hospital follow up appointment with your primary care provider within 7-10 days) - Discharge Summary/Plan Comment DC Time >30 min.: Yes Discharge Summary/Plan Comment: Follow-up with primary care provider next week for repeat hemoglobin. Do not restart your Eliquis. Follow-up with Dr. Rees in surgery in 4 to 5 weeks. - General Info Date of Service: 08/21/19 Admission Dx/Problem (Free Text: Admission Diagnosis/Problem Admission Diagnosis/Problem Gastric hemorrhage Functional Status: Reports: Pain Controlled - Review of Systems General: Reports: No Symptoms HEENT: Reports: No Symptoms Pulmonary: Reports: No Symptoms Cardiovascular: Reports: No Symptoms Gastrointestinal: Reports: No Symptoms Musculoskeletal: Reports: No Symptoms Skin: Reports: No Symptoms Psychiatric: Reports: No Symptoms - Patient Data Vitals - Most Recent: Last Vital Signs Temp 97.7 F 08/21/19 08:00 Pulse 70 08/21/19 09:11 Resp 16 08/21/19 08:00 BP 141/90 H 08/21/19 09:11 Pulse Ox 97 08/21/19 08:00 Orthostatic Blood Pressure [ 140/100 Standing] Orthostatic Blood Pressure [ 153/94 Sitting] Orthostatic Blood Pressure [ 137/98 Supine] Weight - Most Recent: 188 lb 14.4 oz I&O - Last 24 hours: Intake & Output 08/20/19 08/21/19 08/21/19 22:59 06:59 14:59 Intake Total 2009 100 Balance 2009 100 Lab Results - Last 24 hrs: Laboratory Results - last 24 hr 08/20/19 08/20/19 08/21/19 Range/Units 14:13 19:59 02:05 Hgb 12.5 L 12.6 L 12.0 L (13.7-17.5) gm/dl Hct 39.6 L 39.2 L 38.2 L (40.1-51.0) % 08/21/19 Range/Units 08:00 Hgb 13.2 L (13.7-17.5) gm/dl Hct 41.8 (40.1-51.0) % Med Orders - Current: Current Medications Artificial Tears (Refresh Liquigel 1%) 0 ml EYEBOTH TID PRN PRN Reason: Dry Eyes Last Admin: 08/20/19 09:28 Dose: 1 drop Diltiazem HCl (Cardizem Cd) 360 mg PO DAILY [facility] Last Admin: 08/21/19 09:13 Dose: 360 mg Hydrochlorothiazide (Hydrochlorothiazide) 12.5 mg PO DAILY [facility] Last Admin: 08/21/19 09:14 Dose: 12.5 mg Pantoprazole Sodium 80 mg/ (Sodium Chloride) 100 mls @ 10 mls/hr IV Q10H [facility] Last Admin: 08/21/19 06:54 Dose: 10 mls/hr Metoprolol Succinate (Toprol Xl) 100 mg PO DAILY [facility] Last Admin: 08/21/19 09:11 Dose: 100 mg Ondansetron HCl (Zofran) 4 mg IV Q4H PRN PRN Reason: Nausea/Vomiting Sodium Chloride (Saline Flush) 10 ml FLUSH ASDIRECTED PRN PRN Reason: Keep Vein Open Last Admin: 08/19/19 10:50 Dose: 10 ml Discontinued Medications Famotidine (Pepcid) 20 mg IVPUSH ONETIME ONE Stop: 08/19/19 10:36 Last Admin: 08/19/19 10:52 Dose: 20 mg Sodium Chloride (Normal Saline) 1,000 mls @ 999 mls/hr IV ONETIME [facility] Last Admin: 08/19/19 11:02 Dose: 999 mls/hr Potassium Chloride 10 meq/ (Premix) 100 mls @ 100 mls/hr IV Q1H [facility] Stop: 08/19/19 18:59 Last Admin: 08/19/19 19:21 Dose: 100 mls/hr Sodium Chloride (Normal Saline) 1,000 mls @ 125 mls/hr IV ASDIRECTED [facility] Last Admin: 08/19/19 23:54 Dose: 125 mls/hr Sodium Chloride (Normal Saline) 1,000 mls @ 75 mls/hr IV ASDIRECTED [facility] Last Admin: 08/20/19 08:29 Dose: 75 mls/hr Metoprolol Tartrate (Lopressor) 5 mg IVPUSH Q6H [facility] Last Admin: 08/20/19 03:21 Dose: 5 mg Ondansetron HCl (Zofran) 4 mg IVPUSH ONETIME ONE Stop: 08/19/19 10:29 Last Admin: 08/19/19 10:50 Dose: 4 mg Pantoprazole Sodium (Protonix Iv) 40 mg IVPUSH ONETIME ONE Stop: 08/19/19 10:36 Last Admin: 08/19/19 10:54 Dose: 40 mg Pantoprazole Sodium (Protonix Iv) 40 mg IVPUSH ONETIME ONE Stop: 08/19/19 13:26 Last Admin: 08/19/19 13:59 Dose: 40 mg - Exam General: Reports: Alert, Oriented HEENT: Reports: Pupils Equal, Mucous Membr. Moist/[place] Neck: Reports: Supple Lungs: Reports: Clear to Auscultation, Normal Respiratory Effort Cardiovascular: Reports: Regular Rate, Regular Rhythm GI/Abdominal Exam: Normal Bowel Sounds, Soft, Non-Tender, No Organomegaly, No Distention Back Exam: Reports: Normal Inspection Extremities: Normal Inspection, Normal Range of Motion, Non-Tender, No Pedal Edema, Normal Capillary Refill Skin: Reports: Warm, Dry, Intact Neurological: Reports: No New Focal Deficit Psy/Mental Status: Reports: Alert, Normal Affect, Normal Mood
== END 2019-08-21 11:40 | disposition home or self-care (01) | DRG 379 ==
LOC: JD.ED 09:29 → JD.ICU 13:10
PROVIDERS: ADMIT Family Medicine; ATTEND Family Medicine
DX: K92.2 Gastrointestinal hemorrhage, unspecified (principal); I10 Essential (primary) hypertension; R00.0 Tachycardia, unspecified; Z86.711 Personal history of pulmonary embolism; J45.998 Other asthma; N42.9 Disorder of prostate, unspecified; R09.02 Hypoxemia; Z79.01 Long term (current) use of anticoagulants; E78.00 Pure hypercholesterolemia, unspecified; Z98.49 Cataract extraction status, unspecified eye; Z90.49 Acquired absence of other specified parts of digestive tract; Z79.899 Other long term (current) drug therapy; Z88.8 Allergy status to other drugs, medicaments and biological substances; Z86.718 Personal history of other venous thrombosis and embolism; Z87.891 Personal history of nicotine dependence
CPT/HCPCS: 36415; 80053; 85025; 96361; 96374; 96375; 99285; C9113; J2405; J3490; J7030; 83735; 85014; 85018; 85610; 85730; 86850; 86900; 86901; 93005; 96376; 99222; 99231; 99239; 99284; A9270-GY; J3480; J7050

== ENCOUNTER 2024-03-20 12:18 | Inpatient (IN) | payer MEDICARE, OTHER ==
[2024-03-20] MEDS ORDERED: Sodium Chloride 0.9% 10 ML Syringe FLUSH PRN (13:09)
[2024-03-20 13:57] LABS: BASOPHILS PERCENT AUTO 0.6 % (0.0-1.0); EOSINOPHILS ABSOLUTE AUTO 0.1 K/mm3 (0.0-0.4); EOSINOPHILS PERCENT AUTO 1.9 % (0.0-6.0); HEMOGLOBIN 14.1 gm/dl (14.0-18.0); IMMATURE GRAN ABSOLUTE AUTO 0.02 K/mm3 (0.00-0.05); IMMATURE GRAN PERCENT AUTO 0.3 % (0.0-0.4); LYMPHOCYTES ABSOLUTE AUTO 0.9 K/mm3 (1.0-4.8); LYMPHOCYTES PERCENT AUTO 13.4 % (24.0-44.0); MEAN CORPUSCULAR HEMOGLOBIN 29.3 pg (28.0-32.0); MEAN CORPUSCULAR HGB CONC 33.6 g/dl (32.0-36.0); MEAN CORPUSCULAR VOLUME 87.3 fl (83.0-99.0); MEAN PLATELET VOLUME 9.2 fl (9.4-12.4); MONOCYTES ABSOLUTE AUTO 0.6 K/mm3 (0.0-0.8); MONOCYTES PERCENT AUTO 8.5 % (0.0-8.0); NEUTROPHILS ABSOLUTE AUTO 5.2 K/mm3 (1.8-7.7); NEUTROPHILS PERCENT AUTO 75.3 % (41.0-71.0); PLATELET COUNT,PLT 170 K/mm3 (150-400); RED BLOOD CELL COUNT 4.81 M/mm3 (4.52-5.90); WHITE BLOOD CELL COUNT,WBC 6.94 K/mm3 (3.9-11.3)
[2024-03-20 14:25] LABS: ALBUMIN 3.8 g/dl (3.4-5.0); ANION GAP 12.6 (5-15); BILIRUBIN TOTAL 0.5 mg/dL (0.2-1.0); BUN/CREATININE RATIO 12.9 (14-18); C-REACTIVE PROTEIN 0.71 mg/dL (<0.30); CREATININE 1.4 mg/dL (0.7-1.3); EST CRCL DRUG DOSING (CG) 43.94 mL/min; MAGNESIUM 1.6 mg/dL (1.8-2.4); POTASSIUM,K 3.6 mEq/L (3.5-5.1); PROTEIN TOTAL,TP 7.6 g/dl (6.4-8.2); TSH 2.58 uIU/mL (0.358-3.74)
[2024-03-20 15:19] LABS: APPEARANCE,URINE SLT CLOUDY (Clear); BILIRUBIN,URINE NEGATIVE (Negative); COLOR,URINE LIGHT YELLOW (Yellow); GLUCOSE,URINE NEGATIVE (Negative); KETONES,URINE NEGATIVE (Negative); LEUKOCYTE ESTERASE,URINE 1+ (Negative); NITRITE,URINE NEGATIVE (Negative); OCCULT BLOOD,URINE NEGATIVE (Negative); PH,URINE 6.5 (5.0-8.0); PROTEIN,URINE NEGATIVE (Negative); UROBILINOGEN,URINE 0.2 (0.2-1.0)
[2024-03-20] MEDS: diphenhydrAMINE 50 MG/ML SDV IVPUSH ONE (15:32)
[2024-03-20] MEDS: methylPREDNISolone Sodium Succinate 125 MG/2 ML SDV IVPUSH ONE (15:34)
[2024-03-20] MEDS: Sodium Chloride 0.9% 1,000 ML IV SCH (15:38)
[2024-03-20 16:01] LABS: RBC,URINE 0-5 /hpf (0-5); SQUAMOUS EPITHELIAL CELLS,UR 0-5 /hpf (0-5)
[2024-03-20 16:02] LABS: BACTERIA,URINE RARE /hpf (FEW); HYALINE CASTS,URINE 0-5 /lpf (0-5); MUCUS,URINE FEW /hpf (FEW)
[2024-03-20 16:03] LABS: CORONAVIRUS COVID-19 NAA NEGATIVE (NEGATIVE); INFLUENZA A NAA NEGATIVE (NEGATIVE); RESPIRATORY SYNCYTIAL VIR NAA NEGATIVE (NEGATIVE)
[2024-03-20] MEDS: Iopamidol 755 Mg/ML 100 ML Bottle IVPUSH ONE (16:09)
[2024-03-20] MEDS: Sodium Chloride 0.9% 100 ML IV SCH (16:09)
[2024-03-20] MEDS: Heparin Sodium 5,000 Units/ML Vial IVPUSH ONE (17:37)
[2024-03-20] MEDS: Heparin Sodium/D5W 25,000 UNITS/500 ML BAG IV SCH (17:42)
[2024-03-20] MEDS ORDERED: Sennosides/Docusate Sodium 50-8.6 MG Tab PO PRN (19:19)
[2024-03-20] MEDS ORDERED: Naloxone 0.4 MG/ML SDV IVPUSH PRN (19:19)
[2024-03-20] MEDS ORDERED: Morphine 2 MG/ML SYRINGE IVPUSH PRN (19:19)
[2024-03-20] MEDS ORDERED: Ondansetron 4 MG/2 ML SDV IV PRN (19:19)
[2024-03-20] MEDS ORDERED: oxyCODONE 5 MG Tab PO PRN (19:19)
[2024-03-20] MEDS ORDERED: Melatonin 3 MG Tab PO PRN (19:19)
[2024-03-20] MEDS: Magnesium Sulfate/Water 4 GM in Premix Bag 1 BAG IV ONE (19:31)
[2024-03-20] MEDS ORDERED: hydrALAZINE 20 MG/ML SDV IVPUSH PRN (19:32)
[2024-03-20] MEDS ORDERED: Labetalol 100 MG/20 ML MDV IVPUSH PRN (19:35)
[2024-03-20] MEDS: Famotidine 20 MG/2 ML SDV IVPUSH SCH (23:28)
[2024-03-21 06:59] LABS: BASOPHILS PERCENT AUTO 0.2 % (0.0-1.0); HEMATOCRIT 45.2 % (42.0-52.0); HEMOGLOBIN 15.1 gm/dl (14.0-18.0); IMMATURE GRAN ABSOLUTE AUTO 0.02 K/mm3 (0.00-0.05); IMMATURE GRAN PERCENT AUTO 0.5 % (0.0-0.4); LYMPHOCYTES ABSOLUTE AUTO 0.5 K/mm3 (1.0-4.8); LYMPHOCYTES PERCENT AUTO 10.3 % (24.0-44.0); MEAN CORPUSCULAR HEMOGLOBIN 29.2 pg (28.0-32.0); MEAN CORPUSCULAR HGB CONC 33.4 g/dl (32.0-36.0); MEAN CORPUSCULAR VOLUME 87.4 fl (83.0-99.0); MEAN PLATELET VOLUME 9.1 fl (9.4-12.4); MONOCYTES ABSOLUTE AUTO 0.1 K/mm3 (0.0-0.8); MONOCYTES PERCENT AUTO 1.4 % (0.0-8.0); NEUTROPHILS ABSOLUTE AUTO 3.8 K/mm3 (1.8-7.7); NEUTROPHILS PERCENT AUTO 87.6 % (41.0-71.0); PLATELET COUNT,PLT 169 K/mm3 (150-400); RED BLOOD CELL COUNT 5.17 M/mm3 (4.52-5.90); WHITE BLOOD CELL COUNT,WBC 4.38 K/mm3 (3.9-11.3)
[2024-03-21 07:44] LABS: A/G RATIO 0.9 (1-2); ANION GAP 12.1 (5-15); BILIRUBIN TOTAL 0.5 mg/dL (0.2-1.0); BUN/CREATININE RATIO 12.3 (14-18); CALCIUM 9.1 mg/dL (8.5-10.1); CREATININE 1.3 mg/dL (0.7-1.3); EST CRCL DRUG DOSING (CG) 47.32 mL/min; MAGNESIUM 2.2 mg/dL (1.8-2.4); PHOSPHORUS 3.8 mg/dL (2.6-4.7); POTASSIUM,K 4.1 mEq/L (3.5-5.1); PROTEIN TOTAL,TP 8.3 g/dl (6.4-8.2)
[2024-03-21] MEDS: Heparin Sodium/D5W 25,000 UNITS/500 ML BAG IV SCH (11:26)
[2024-03-21 14:40] LABS: INR 1.11; PROTHROMBIN TIME 11.7 SECONDS (9.7-12.0)
[2024-03-21] MEDS: Warfarin 5 MG Tab PO ONE (17:16)
[2024-03-21] MEDS: Carboxymethylcellulose Sodium 1% Ophth Gel 15 ML Bottle EYEBOTH PRN (21:26)
[2024-03-22] MEDS: Acetaminophen 325 MG Tab PO PRN (02:43)
[2024-03-22 03:54] LABS: INR 1.13; PROTHROMBIN TIME 11.9 SECONDS (9.7-12.0)
[2024-03-22] MEDS: Diltiazem 180 MG Cap.CD PO SCH (15:07)
[2024-03-22] MEDS: Warfarin 5 MG Tab PO ONE (18:40)
[2024-03-23 07:05] LABS: INR 1.09; PROTHROMBIN TIME 11.5 SECONDS (9.7-12.0)
[2024-03-23 07:13] LABS: BUN/CREATININE RATIO 12.5 (14-18); CALCIUM 9.1 mg/dL (8.5-10.1); CREATININE 1.2 mg/dL (0.7-1.3); EST CRCL DRUG DOSING (CG) 51.26 mL/min
[2024-03-23] MEDS: Heparin Sodium 5,000 Units/ML Vial IVPUSH ONE (09:16)
[2024-03-23] MEDS: Warfarin 7.5 MG Tab PO SCH (17:29)
[2024-03-23] MEDS: Lisinopril 10 MG Tab PO SCH (18:28)
[2024-03-24 06:33] LABS: ANION GAP 12.2 (5-15); BUN/CREATININE RATIO 15.5 (14-18); CALCIUM 8.9 mg/dL (8.5-10.1); CREATININE 1.1 mg/dL (0.7-1.3); EST CRCL DRUG DOSING (CG) 55.92 mL/min; POTASSIUM,K 4.2 mEq/L (3.5-5.1)
[2024-03-24 06:38] LABS: INR 1.29; PROTHROMBIN TIME 13.4 SECONDS (9.7-12.0)
[2024-03-24] MEDS: [UNRECOGNIZED DRUG - OTHER] PO SCH (08:32)
[2024-03-24] MEDS: [UNRECOGNIZED DRUG - OTHER] PO SCH (08:32)
[2024-03-24] MEDS: Warfarin 4 MG Tab PO SCH (17:31)
[2024-03-24] MEDS: Famotidine 20 MG Tab PO SCH (21:11)
[2024-03-25 05:24] LABS: INR 1.85; PROTHROMBIN TIME 18.8 SECONDS (9.7-12.0)
[2024-03-25 06:03] LABS: PTT,PARTIAL THROMBOPLSTIN TIME 105.5 SECONDS (21.7-31.4)
[2024-03-25] MEDS: Warfarin 3 MG Tab PO SCH (17:21)
[2024-03-26 05:25] LABS: INR 2.28; PROTHROMBIN TIME 22.9 SECONDS (9.7-12.0)
[2024-03-26 05:27] LABS: PTT,PARTIAL THROMBOPLSTIN TIME 55.8 SECONDS (21.7-31.4)
== END 2024-03-26 10:37 | disposition home or self-care (01) | DRG 175 ==
LOC: JD.ED 12:18 → UNDOADMIN 18:24 → JD.ICU 18:24 → JD.MS 18:25 → JD.ICU 18:25 → JD.MS 19:13
PROVIDERS: ADMIT Student in an Organized Health Care Education/Training Program; ATTEND Student in an Organized Health Care Education/Training Program
DX: I26.99 Other pulmonary embolism without acute cor pulmonale (principal); J96.01 Acute respiratory failure with hypoxia; I82.411 Acute embolism and thrombosis of right femoral vein; I82.442 Acute embolism and thrombosis of left tibial vein; E87.1 Hypo-osmolality and hyponatremia; Z66 Do not resuscitate; H54.7 Unspecified visual loss; E78.00 Pure hypercholesterolemia, unspecified; J45.909 Unspecified asthma, uncomplicated; I11.0 Hypertensive heart disease with heart failure; I50.9 Heart failure, unspecified; I95.9 Hypotension, unspecified; Z79.01 Long term (current) use of anticoagulants; I10 Essential (primary) hypertension; Z79.899 Other long term (current) drug therapy; Z98.49 Cataract extraction status, unspecified eye; Z98.890 Other specified postprocedural states; Z87.891 Personal history of nicotine dependence; Z91.041 Radiographic dye allergy status
CPT/HCPCS: 0241U; 36415; 71045; 71275; 80048; 80053; 81001; 83735; 83880; 84100; 84443; 84484; 85025; 85379; 85610; 85730; 86140; 87086; 93005; 93306; 93970; 94761; 96361; 96365; 96366; 96375; 99285; 93010; 99223; 99232; 99239; A9270-GY; J1200; J1644; J2919; J3475; J3490; J7030; Q9967